=== PATIENT | female | born 1960 ===

== ENCOUNTER 2017-02-19 14:30 | Emergency (ER) | payer OTHER ==
[2017-02-19 14:37] VITALS: BP 134/74; PULSE 76; RESP 18; TEMP 97; O2SAT 98
--- NOTE | 2017-02-19 16:57 | ED PDOC ---
Upper Extremity Pain/Injury Time Seen by Provider: 02/19/17 15:06 Chief Complaint (Nursing): Upper Extremity Problem/Injury Chief Complaint (Provider): Left shoulder pain History Per: Patient, Family (Patient's daughter is translating for patient in ED as per patient request) History/Exam Limitations: no limitations Onset/Duration Of Symptoms: Days (x 2 weeks ) Additional Complaint(s): 56 year old right hand dominant female presenting to the ED complaining of pain in her left arm and shoulder for 2 weeks. Patient denies any fall or injury but reports that she bumped into a wall last week with left arm after which the pain worsened. She reports taking Advil this morning and experienced no relief. Patient states she has difficulty lifting her left arm fully. She denied chest pain and any numbness or tingling to the arm. PMD: Dr. Gato Jean MD Past Medical History Reviewed: Historical Data, Nursing Documentation, Vital Signs Vital Signs: Last Vital Signs Temp 97 F L 02/19/17 14:34 Pulse 76 02/19/17 14:34 Resp 18 02/19/17 14:34 BP 134/74 02/19/17 14:34 Pulse Ox 98 02/19/17 14:34 - Medical History PMH: No Chronic Diseases - Surgical History Surgical History: (x 4) - Family History Family History: States: No Known Family Hx - Living Arrangements Living Arrangements: With Family - Social History Current smoker - smoking cessation education provided: No Alcohol: None Drugs: Denies - Home Medications Home Medications: Ambulatory Orders Medication Instructions Recorded Cyclobenzaprine [Cyclobenzaprine 10 mg PO TID PRN #15 tab 02/19/17 HCl] Naproxen [Naprosyn] 500 mg PO BID #20 tab 02/19/17 traMADol [Ultram] 50 mg PO TID PRN #15 tab 02/19/17 - Allergies Allergies/Adverse Reactions: Allergies Allergy/AdvReac Type Severity Reaction Status Date / Time No Known Allergies Allergy Verified 02/19/17 14:34 Review of Systems ROS Statement: Except As Marked, All Systems Reviewed And Found Negative Cardiovascular: Negative for: Chest Pain Respiratory: Negative for: Shortness of Breath Gastrointestinal: Negative for: Nausea, Vomiting Musculoskeletal: Positive for: Shoulder Pain (left). Negative for: Neck Pain, Back Pain Neurological: Negative for: Weakness, Numbness, Headache, Dizziness Physical Exam - Reviewed Nursing Documentation Reviewed: Yes Vital Signs Reviewed: Yes - Physical Exam Appears: Positive for: Well, Non-toxic, No Acute Distress Head Exam: Positive for: ATRAUMATIC, NORMAL INSPECTION, NORMOCEPHALIC Skin: Positive for: Normal Color Eye Exam: Positive for: Normal appearance Neck: Positive for: Normal, Painless ROM. 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 Negative for: Normal ROM, Deformity Neurologic/Psych: Positive for: Alert, Oriented - ECG O2 Sat by Pulse Oximetry: 98 (RA) Pulse Ox Interpretation: Normal - Other Rad Left shoulder x-ray X-Ray: Viewed By Me X-Ray Interpretation: see below Medical Decision Making Medical Decision Making: Time: 16:21 Clinical Impression: 56 year old female with left shoulder pain x 2 weeks Initial Plan: * Flexeril 10 mg PO * Ultram 50 mg PO * Toradol 30 g IM * Left Shoulder x Ray Left Shoulder x Ray Time: 17:31 FINDINGS: BONES: No acute displaced fracture. The distal clavicle and underlying ribs appear intact. JOINTS: No acute dislocation. Calcification noted near the glenohumeral joint space may be related to calcific tendinitis. SOFT TISSUES: Soft tissues appear unremarkable. No evidence of radiopaque foreign body. IMPRESSION: No acute displaced fracture or dislocation evident. If symptoms persist or if there is continued clinical concern, x-ray follow-up in 7-10 days should be considered. Patient reports improvement of pain after medications given in ED. She is aware of x-ray results, all questions answered. Patient given sling as well as prescriptions for Ultram, Naprosyn and Flexeril. Patient was referred to clinic for follow-up. Scribe Attestation: Documented by Mary Garza, acting as a scribe for Adilene Galan PA-C Provider Scribe Attestation: All medical record entries made by the Scribe were at my direction and personally dictated by me. I have reviewed the chart and agree that the record accurately reflects my personal performance of the history, physical exam, medical decision making, and the department course for this patient. I have also personally directed, reviewed, and agree with the discharge instructions and disposition. Procedures - Splinting Location: left arm Pre-Made Type: sling Pre-Proc Neuro Vasc Exam: normal Post-Proc Neuro Vasc Exam: normal Disposition - Clinical Impression Clinical Impression: Calcific tendinitis of left shoulder Counseled Patient/Family Regarding: Studies Performed, Diagnosis, Need For Followup, Rx Given - Disposition Referrals: [facility] [Outside] Disposition: Routine/Home Disposition Time: 17:52 Condition: STABLE Additional Instructions: Ice and rest the affected area. Take prescription medications as needed as directed for pain. Follow-up with clinic in 2-3 days. Prescriptions: Cyclobenzaprine [Cyclobenzaprine HCl] 10 mg PO TID PRN #15 tab PRN Reason: Muscle Pain Naproxen [Naprosyn] 500 mg PO BID #20 tab traMADol [Ultram] 50 mg PO TID PRN #15 tab PRN Reason: Pain, Moderate (4-7) Instructions: Calcific Tendinitis (ED) Forms: [employer] (Bengali) Print Language: TAMAZIGHT
--- NOTE | 2017-02-19 17:33 | RAD ---
PROCEDURE: Radiographs of the Left Shoulder HISTORY: pain, nontraumatic COMPARISON: None available. FINDINGS: BONES: No acute displaced fracture. The distal clavicle and underlying ribs appear intact. JOINTS: No acute dislocation. Calcification noted near the glenohumeral joint space may be related to calcific tendinitis. SOFT TISSUES: Soft tissues appear unremarkable. No evidence of radiopaque foreign body. IMPRESSION: No acute displaced fracture or dislocation evident. If symptoms persist or if there is continued clinical concern, x-ray follow-up in 7-10 days should be considered. Calcification noted near the glenohumeral joint space may be related to calcific tendinitis.
== END 2017-02-19 18:29 | disposition home or self-care (01) ==
LOC: H.ER 14:30
DX: M75.32 Calcific tendinitis of left shoulder (principal)
CPT/HCPCS: 73030; 96372; 99282; J1885